=== PATIENT | male | born 1980 | race African-American/Black ===

== ENCOUNTER 2016-10-18 18:57 | Emergency (ER) | payer SELFPAY ==
[2016-10-18] MEDS ORDERED: SODIUM CHLORIDE 0.9% FLUSH 10 ML SOL IV PRN (19:13)
[2016-10-18] MEDS ORDERED: SODIUM CHLORIDE 0.9% 1000ML 1,000 ML IV ONE (19:21)
[2016-10-18 19:32] VITALS: TEMP 98.8
[2016-10-18 19:35] LABS: BASOPHILS % (AUTO) 2 % (0-3); EOSINOPHILS % (AUTO) 1 % (0-9); HEMATOCRIT 51 % (39-53); MEAN CORPUSCULAR HGB CONC 33.8 gm/dl (32.0-36.0); MEAN CORPUSCULAR VOLUME 86 fL (80-100); MONOCYTES % (AUTO) 11.8 % (0-12); NEUTROPHILS % (AUTO) 64.1 % (37-80)
[2016-10-18] MEDS ORDERED: KETOROLAC TROMETHAMINE 30 MG/ML SOL IV ONE (19:36)
[2016-10-18 19:41] LABS: CALCIUM 10.4 mg/dl (8.5-10.1); POTASSIUM 4.1 mMol/L (3.5-5.1)
[2016-10-18] MEDS ORDERED: KETOROLAC TROMETHAMINE 30 MG/ML SOL ONE (19:44)
[2016-10-18 19:47] VITALS: BP 136/99; PULSE 79; RESP 24; O2SAT 98
== END 2016-10-18 20:46 | disposition home or self-care (01) | DRG 641 ==
LOC: ED 18:57
DX: E86.0 Dehydration (principal); R07.89 Other chest pain
CPT/HCPCS: 71010; 80048; 84484; 85025; 93005; 96365; 96374; 99284; J1885